=== PATIENT | female | born 1995 | race Caucasian/White ===

== ENCOUNTER → 2017-03-15 | Outpatient (CLI) | payer OTHER | LOC: CLAB 10:14 → CIMAGING 10:24 | PROVIDERS: ATTEND Family Medicine | DX: R10.9 Unspecified abdominal pain (principal) | CPT/HCPCS: 71020-PO ==

== ENCOUNTER 2017-03-17 21:05 | Emergency (ER) | payer OTHER ==
--- NOTE | 2017-03-17 22:08 | EDPHY ---
H & P Time Seen by Provider: 03/17/17 22:07 HPI/ROS: Chief complaint. Right flank pain HPI. 21-year-old female right side abdominal pain for 5 days. She has been seen at [facility] with normal workup other than elevated liver function tests that were mildly elevated. Ultrasound of the gallbladder was normal there was fatty infiltration of the liver. Pain is in the right back. She has had some vomiting. She has also had some diarrhea. No shortness of breath or cough. No urinary symptoms. No abdominal history or previous abdominal surgery. No fever ROS Constitutional. no fever/chills, no weakness Eyes. no problems with vision ENT. no sore throat, no nasal drainage Cardiovascular. no chest pain Respiratory. no shortness of breath, no cough Abdominal. Right flank pain with vomiting and diarrhea . no problems urinating MS. no calf pain/swelling, no neck/back pain, no joint pain Skin. no rash Lymph. no swollen glands Neuro. no headache, no dizziness, no difficulty walking or with speech Past Medical/Surgical History: Past medical history significant for migraines Social History: Single, nonsmoker, no alcohol Smoking Status: Never smoked Physical Exam: General Appearance: Alert well-developed female mild distress vital signs are stable Eyes: Pupils equal and round no pallor or injection. ENT, Mouth: Mucous membranes are moist. Respiratory: There are no retractions, lungs are clear to auscultation. Cardiovascular: Regular rate and rhythm. Gastrointestinal: Abdomen is soft with mild tenderness right upper quadrant and right flank. No masses. Normal bowel sounds Neurological: Awake and alert, sensory and motor exams grossly normal. Skin: Warm and dry, no rashes. Musculoskeletal: Discomfort right posterior back Extremities symmetrical, full range of motion. Psychiatric: Patient is oriented X 3, there is no agitation. Constitutional: Initial Vital Signs Temperature (C) 36.8 C 03/17/17 21:13 Heart Rate 78 03/17/17 21:13 Respiratory Rate 18 03/17/17 21:13 Blood Pressure 137/81 H 03/17/17 21:13 O2 Sat (%) 97 03/17/17 21:13 O2 Delivery Mode Room Air Allergies/Adverse Reactions: No Known Allergies Allergy (Unverified 03/17/17 21:16) Home Medications: Medication Instructions Recorded Naproxen 500 mg PO BID 03/17/17 Medical Decision Making - Diagnostics Imaging Results: Imaging Impressions Abdomen X-Ray 03/17/17 22:37 Impression: Mild constipation. Upright KUB interpreted by me shows no evidence of free air or air-fluid levels. Consistent with right-sided constipation Procedures: IV normal saline ED Course/Re-evaluation: Serial evaluations patient is stable. She and I discussed imaging and lab results. We discussed treatment plan including criteria for return importance of follow-up and further evaluation. She expresses understanding and agreement Differential Diagnosis: I considered pulmonary embolus, acute cholecystitis, kidney stone, pyelonephritis. It appears the pain is caused by constipation - Data Points Laboratory Results: Laboratory Results 03/17/17 22:37 03/17/17 22:37 03/17/17 03/17/17 03/17/17 22:37 22:37 22:37 WBC RBC Hgb Hct MCV MCH MCHC RDW Plt Count MPV Neut % (Auto) Lymph % (Auto) [place] % (Auto) Eos % (Auto) Baso % (Auto) Nucleat RBC Rel Count Absolute Neuts (auto) Absolute Lymphs (auto) Absolute Monos (auto) Absolute Eos (auto) Absolute Basos (auto) Absolute Nucleated RBC Immature Gran % Immature Gran # D-Dimer < 0.27 ug/mLFEU ug/mLFEU (0.00-0.50) Sodium 142 mEq/L mEq/L (134-144) Potassium 4.0 mEq/L mEq/L (3.5-5.2) Chloride 106 mEq/L mEq/L (97-110) Carbon Dioxide 25 mEq/l mEq/l (22-31) Anion Gap 11 mEq/L mEq/L (8-16) BUN 13 mg/dL mg/dL (7-23) Creatinine 0.8 mg/dL mg/dL (0.6-1.0) Estimated GFR > 60 Glucose 91 mg/dL mg/dL (70-100) Calcium 10.0 mg/dL mg/dL (8.5-10.4) Total Bilirubin 0.6 mg/dL mg/dL (0.1-1.4) Conjugated Bilirubin 0.3 mg/dL mg/dL (0.0-0.5) Unconjugated Bilirubin 0.3 mg/dL mg/dL (0.0-1.1) AST 52 IU/L H IU/L (14-46) ALT 87 IU/L H IU/L (9-52) Alkaline Phosphatase 52 IU/L IU/L (38-126) Total Protein 7.6 g/dL g/dL (6.3-8.2) Albumin 4.7 g/dL g/dL (3.5-5.0) Lipase 224.0 IU/L IU/L (23-300) Beta HCG, Qual NEGATIVE 03/17/17 22:37 WBC 8.90 10^3/uL 10^3/uL (3.80-9.50) RBC 4.92 10^6/uL 10^6/uL (4.18-5.33) Hgb 14.2 g/dL g/dL (12.6-16.3) Hct 40.6 % % (38.0-47.0) MCV 82.5 fL fL (81.5-99.8) MCH 28.9 pg pg (27.9-34.1) MCHC 35.0 g/dL g/dL (32.4-36.7) RDW 12.4 % % (11.5-15.2) Plt Count 268 10^3/uL D 10^3/uL (150-400) MPV 10.3 fL fL (8.7-11.7) Neut % (Auto) 58.0 % % (39.3-74.2) Lymph % (Auto) 33.9 % % (15.0-45.0) [place] % (Auto) 5.3 % % (4.5-13.0) Eos % (Auto) 1.9 % % (0.6-7.6) Baso % (Auto) 0.6 % % (0.3-1.7) Nucleat RBC Rel Count 0.0 % % (0.0-0.2) Absolute Neuts (auto) 5.16 10^3/uL 10^3/uL (1.70-6.50) Absolute Lymphs (auto) 3.02 10^3/uL H 10^3/uL (1.00-3.00) Absolute Monos (auto) 0.47 10^3/uL 10^3/uL (0.30-0.80) Absolute Eos (auto) 0.17 10^3/uL 10^3/uL (0.03-0.40) Absolute Basos (auto) 0.05 10^3/uL 10^3/uL (0.02-0.10) Absolute Nucleated RBC 0.00 10^3/uL 10^3/uL (0-0.01) Immature Gran % 0.3 % % (0.0-1.1) Immature Gran # 0.03 10^3/uL 10^3/uL (0.00-0.10) D-Dimer Sodium Potassium Chloride Carbon Dioxide Anion Gap BUN Creatinine Estimated GFR Glucose Calcium Total Bilirubin Conjugated Bilirubin Unconjugated Bilirubin AST ALT Alkaline Phosphatase Total Protein Albumin Lipase Beta HCG, Qual Medications Given: Discontinued Medications Sodium Chloride (Ns) 1,000 mls @ 0 mls/hr IV ONCE ONE PRN Reason: Wide Open Stop: 03/17/17 22:38 Last Admin: 03/17/17 22:55 Dose: 1,000 mls Departure - Departure Disposition: Home, Routine, Self-Care Clinical Impression: Abdominal pain Qualifiers: Abdominal location: right upper quadrant Qualified Code(s): R10.11 - Right upper quadrant pain Condition: Good Instructions: Constipation (ED), High Fiber Diet (ED) Additional Instructions: Increased fluids including fruit and prune juice. You may also try milk of magnesia, magnesium citrate, alfredo Colace that you may purchase at the grocery store. Return for worsening pain, fever, vomiting. Recheck in 2 days if not improved Referrals: Deanne Rodriguez MD [Primary Care Provider] - 2-3 days, if not improved
[2017-03-17] MEDS ORDERED: NS 1,000 ML IV ONE ×2 (22:37→22:38)
[2017-03-17 22:51] LABS: % IMMATURE GRANULYOCYTES 0.3 % (0.0-1.1); ABSOLUTE IMMATURE GRANULOCYTES 0.03 10^3/uL (0.00-0.10); ADD DIFF? NO; ADD MORPH? NO; ADD SCAN? NO; ATYPICAL LYMPHOCYTE FLAG 10 (0-99); FRAGMENT RBC FLAG 0 (0-99); HEMATOCRIT 40.6 % (38.0-47.0); HEMOGLOBIN 14.2 g/dL (12.6-16.3); LEFT SHIFT FLG 0 (0-99); LIPEMIA HEMOLYSIS FLAG 90 (0-99); MEAN CELL HEMOGLOBIN 28.9 pg (27.9-34.1); MEAN CELL VOLUME 82.5 fL (81.5-99.8); MEAN PLATELET VOLUME 10.3 fL (8.7-11.7); PLATELET CLUMPS FLAG 0 (0-99); PLATELET COUNT 268 10^3/uL (150-400); RED BLOOD CELL COUNT 4.92 10^6/uL (4.18-5.33); RED CELL DISTRIBUTION WIDTH 12.4 % (11.5-15.2)
[2017-03-17 23:03] LABS: ALANINE AMINOTRANSFERASE 87 IU/L (9-52); ALBUMIN 4.7 g/dL (3.5-5.0); ALKALINE PHOSPHATASE 52 IU/L (38-126); ANION GAP 11 mEq/L (8-16); ASPARTATE AMINOTRANSFERASE 52 IU/L (14-46); BILIRUBIN,TOTAL 0.6 mg/dL (0.1-1.4); BILIRUBIN-CONJUGATED 0.3 mg/dL (0.0-0.5); BILIRUBIN-UNCONJUGATED 0.3 mg/dL (0.0-1.1); CARBON DIOXIDE 25 mEq/l (22-31); CHLORIDE 106 mEq/L (97-110); CREATININE 0.8 mg/dL (0.6-1.0); GLOMERULAR FILTRATION RATE > 60; GLUCOSE 91 mg/dL (70-100); SODIUM 142 mEq/L (134-144); TOTAL PROTEIN 7.6 g/dL (6.3-8.2)
[2017-03-18 00:21] LABS: COLOR YELLOW; LEUKOCYTE ESTERASE,URINE TRACE (NEGATIVE); NITRITE,URINE NEGATIVE (NEGATIVE)
[2017-03-18 00:26] LABS: MUCUS TRACE /lpf (NONE-1+); RBC,URINE 50-182 /hpf (0-3)
[2017-03-18 01:22] VITALS: BP 115/64; PULSE 88; RESP 16; TEMP 98.1; O2SAT 98
== END 2017-03-18 01:25 | disposition home or self-care (01) ==
DX: R10.11 Right upper quadrant pain (principal)

== ENCOUNTER → 2017-03-17 | Outpatient (CLI) | payer OTHER | LOC: CIMAGING 12:37 | PROVIDERS: ATTEND Family Medicine | DX: R93.2 Abnormal findings on diagnostic imaging of liver and biliary tract (principal) | CPT/HCPCS: 76705-PO ==